=== PATIENT | male | born 1960 | race Two or more races ===

== ENCOUNTER 2016-09-03 22:22 | Inpatient (IN) | payer OTHER, MEDICAID ==
[~2016-09-03] VITALS: Ht 170.2 cm; Wt 96.4 kg
[~2016-09-03 22:22] MED LIST: /ESCI20TA; ABIL2TAB2 PO; ABIL5TAB; AMBI5TAB; BACT2CRE TOP; BENI20TA11; CELE20TA; CELE40TA PO; HYDR-4274 PO; HYDR25T PO; HYDR25TA6; KLON1TAB; METH36TA PO; SERO200T; SEROQUEL; SUBO8MIS SL; TRAZ50TA4 PO
[2016-09-03 23:22] LABS: MEAN CORPUSCULAR HEMOGLOBIN 29.9 pg (27.0-33.0); MEAN CORPUSCULAR HGB CONC 35.4 g/dl (32.0-36.5); MEAN CORPUSCULAR VOLUME 84.4 fl (80.0-96.0); RED CELL DISTRIBUTION WIDTH 13.8 % (11.5-14.5); WHITE BLOOD COUNT 7.5 K/mm3 (4.0-10.0)
[2016-09-03 23:26] LABS: AMPHETAMINES LEVEL URINE NEGATIVE (NEGATIVE); BENZODIAZEPINES URINE NEGATIVE (NEGATIVE); COCAINE METABOLITE URINE NEGATIVE (NEGATIVE); CONTROL LINE INT CTR LINE PRESENT; METHADONE URINE NEGATIVE (NEGATIVE); OPIATES URINE NEGATIVE (NEGATIVE); TRICYCLIC ANTIDEPRESS URINE NEGATIVE (NEGATIVE)
[2016-09-04 00:16] LABS: ALBUMIN 3.9 GM/DL (3.2-5.2); ALBUMIN/GLOBULIN RATIO 1.11 (1.00-1.93); ALKALINE PHOSPHATASE 54 U/L (45-117); ALT/SGPT 173 U/L (12-78); ANION GAP 7 MEQ/L (8-16); AST/SGOT 79 U/L (15-37); BILIRUBIN,DIRECT < 0.1 MG/DL (0.0-0.2); BILIRUBIN,TOTAL 0.3 MG/DL (0.2-1.0); BLOOD UREA NITROGEN 10 MG/DL (7-18); CALCIUM LEVEL 8.5 MG/DL (8.5-10.1); CARBON DIOXIDE LEVEL 29 MEQ/L (21-32); CHLORIDE LEVEL 109 MEQ/L (98-107); CREATININE FOR GFR 0.91 MG/DL (0.70-1.30); GLOMERULAR FILTRATION RATE > 60.0 (>56); GLUCOSE, FASTING 109 MG/DL (70-105); SODIUM LEVEL 145 MEQ/L (136-145); TOTAL PROTEIN 7.4 GM/DL (6.4-8.2)
[2016-09-04] MEDS ORDERED: MOM 30ML SUSPENSION UDC PO PRN (02:00)
[2016-09-04] MEDS ORDERED: ACETAMINOPHEN TAB 650MG DOSE (2X325MG) PO PRN (02:00)
[2016-09-04] MEDS ORDERED: hydrOXYzine 50 MG TAB PO PRN (02:00)
[2016-09-04] MEDS ORDERED: MAALOX 30 ML SUSP *UDC PO PRN (02:00)
--- NOTE | 2016-09-04 02:49 | EDDOCDS ---
Physician Documentation [facility] Name: Luciano Holder Age: 55 yrs Sex: Male : 1960 Arrival Date: 09/03/2016 Time: 22:22 Bed OBSERVATION Private MD: Unknown, Family Dr Disposition: 09/04/16 02:31 Hospitalization ordered by Costa Barrientos for Inpatient Admission. Preliminary diagnosis are Major depressive disorder, recurrent, Alcohol abuse with intoxication. - Bed requested for Admit. - Status is Inpatient Admission. rw1 - Condition is Stable. - Problem is chronic. - Symptoms have improved. Historical: - Home Meds: 1. citalopram 40 mg Oral tab 1 tab once daily 2. Concerta Oral once daily 3. hydroxyzine HCl 25 mg Oral tab 1 tab 3 times per day 4. Suboxone 8-2 mg SL film 1.5 film once daily 1.5 film daily - PMHx: Anxiety; Depression; Hepatitis C; Hypertension; - PSHx: none; - Social history: Smoking status: Patient uses tobacco products, heavy tobacco smoker. No barriers to communication noted, The patient speaks fluent Nigerien, Speaks appropriately for age. - Family history: Not pertinent. - : The pt / caregiver states he / she is not on anticoagulants. Home medication list is obtained from [employer] import data. - Exposure Risk Screening:: None identified. Vital Signs: 09/03 22:23 BP 146 / 86; Pulse 98; Resp 18 S; Temp 97.7(O); Pulse Ox 96% ; Weight 97.52 kg / 214.99 gr2 lbs (R); Height 5 ft. 7 in. (170.18 cm) (R); Pain 2/10; 09/04 02:35 BP 112 / 69; Pulse 71; Resp 18; Temp 97.9(TE); Pulse Ox 95% on R/A; tr 09/03 22:23 Body Mass Index 33.67 (97.52 kg, 170.18 cm) gr2 MDM: 09/03 22:41 Consult PFS/PSA/Family Medicine Physician Assistant ordered. cs11 22:41 Consult PFS/PSA/Family Medicine Physician Assistant: Patient's case requires discussion with on-call cs11 Psychiatrist ordered. 22:41 PSA/PFS to call Nursing Salesperson [employer], to enter patient data on [place] Safe Act if patient cs11 involuntarily admitted or transferred for SI or HI ordered. 22:41 Confirm accurate psychiatric medication list and times of last dosage ordered. cs11 22:41 Detain Pt Until Medically/PFS Cleared ordered. cs11 22:42 Acetaminophen Level Ordered. EDMS 22:42 Basic Metabolic Profile Ordered. EDMS 22:42 Complete Blood Count Ordered. EDMS 22:42 Drug Eval Toxicology ED Only Ordered. EDMS 22:42 Ethyl Alcohol (ethanol) Ordered. EDMS 22:42 Liver Profile Ordered. EDMS 22:42 Salicylate Level Ordered. EDMS 22:42 Thyroid Stimulating Hormone Ordered. EDMS 09/04 00:06 Financial registration complete. [facility] 00:17 [facility] Payment Agreement was scanned into [employer] and attached to record. [facility] 01:49 Consult PFS/PSA/Family Medicine Physician Assistant complete. [facility] 01:49 Consult PFS/PSA/Family Medicine Physician Assistant: Patient's case requires discussion with on-call b Psychiatrist complete. 01:49 PSA/PFS to call Nursing Salesperson [employer], to enter patient data on [facility] Safe Act if patient jfb involuntarily admitted or transferred for SI or HI complete. 02:02 Admit to [facility]: ordered. EDMS 02:03 REGULAR DIET ordered. EDMS 02:29 [facility] Legal paperwork was scanned into [employer] and attached to record. jfb 02:30 Acetaminophen Level Reviewed. cs11 02:30 Basic Metabolic Profile Reviewed. cs11 02:30 Ethyl Alcohol (ethanol) Reviewed. cs11 02:30 Liver Profile Reviewed. cs11 02:30 Salicylate Level Reviewed. cs11 02:30 Complete Blood Count Reviewed. cs11 02:30 Drug Eval Toxicology ED Only Reviewed. cs11 02:30 Thyroid Stimulating Hormone Reviewed. cs11 02:33 BED REQUEST+ADM ordered. EDMS Signatures: Dispatcher [employer] EDMS Musa Matias, RN RN cz Shahram Silvestre LPN NETWORKING ENGINEER rw1 Iesha Ford PSA PSA David Baca, DO cs11 Tiffanie Hathaway [facility] The chart was reviewed and I authenticate all verbal orders and agree with the evaluation and treatment provided.Attachments: 00:17 [facility] Payment Agreement [facility] MTDD
--- NOTE | 2016-09-04 02:50 | EDDOCDS ---
Nurse's Notes [facility] Name: Luciano Holder Age: 55 yrs Sex: Male : 1960 Arrival Date: 09/03/2016 Time: 22:22 Bed OBSERVATION Private MD: Unknown, Family Dr Diagnosis: Major depressive disorder, recurrent;Alcohol abuse with intoxication Presentation: 09/03 22:30 Presenting complaint: Patient states: pt states he has been depressed since the cz holidays,pt has history of depression takes medications for same.pt denies SI/HI. Mental Health Triage Level: Level 1- Pt displays no suicidal or homicidal ideations and does not appear to be a danger to self or others. Adult Sepsis Screening: The patient does not have new or worsening altered mentation. Patient's respiratory rate is less than 22. Systolic blood pressure is greater than 100. Patient has a qSOFA score of 0- Negative Sepsis Screen. Mental Health Triage Level: Level 1- Pt displays no suicidal or homicidal ideations and does not appear to be a danger to self or others. Suicide/Homicide risk assessment- the patient denies having any suicidal and/or homicidal ideations and does not present with any other emotional, behavioral or mental health complaints. Status: Patient is not a service clerk or dependent. Transition of care: patient was not received from another setting of care. 22:30 Acuity: TONJA Level 3 22:30 Method Of Arrival: Walkin/Carried/Asstd Triage Assessment: 22:33 General: Appears distressed, Behavior is cooperative, restless. Pain: Denies pain. HIV cz screening NA for this visit Offered previously. Historical: - Home Meds: 1. citalopram 40 mg Oral tab 1 tab once daily 2. Concerta Oral once daily 3. hydroxyzine HCl 25 mg Oral tab 1 tab 3 times per day 4. Suboxone 8-2 mg SL film 1.5 film once daily 1.5 film daily - PMHx: Anxiety; Depression; Hepatitis C; Hypertension; - PSHx: none; - Social history: Smoking status: Patient uses tobacco products, heavy tobacco smoker. No barriers to communication noted, The patient speaks fluent Lao, Speaks appropriately for age. - Family history: Not pertinent. - : The pt / caregiver states he / she is not on anticoagulants. Home medication list is obtained from [employer] import data. - Exposure Risk Screening:: None identified. Screenin/22 02:46 Screening information is obtained from the patient. Fall risk: No risks identified. rw1 Assistance ADL's: requires no assistance with activities of daily living. Abuse/DV Screen: The patient / caregiver reports he/she is: not in a situation that causes fear, pain or injury. Nutritional screening: No deficits noted. Advance Directives: Currently, there is no health care proxy. home support is adequate. Assessment: 09/03 22:33 General: see triage assessment. rw1 23:30 General: Appears in no apparent distress, comfortable, Behavior is appropriate for age, rw1 cooperative, quiet. Pain: Denies pain. Neurological: Level of Consciousness is awake, alert, obeys commands, Oriented to person, place, time. Respiratory: Airway is patent Respiratory effort is even, unlabored. Derm: Skin is normal. 09/04 00:30 Reassessment: Patient appears in no apparent distress at this time. resting quietly on rw1 stretcher, safety maintained will monitor.. 02:30 Reassessment: Patient appears in no apparent distress at this time. resting quietly on rw1 stretcher, safety maintained will monitor.. Mental Health Eval: 00:56 Status: The patient is a dependent. 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 [facility] Behavioral Health: The patient is not an established patient of [facility]. Referral Information: Evaluation referral is generated by the patient himself / herself. The patient was referred for evaluation because PT requesting admission for depression. Subjective: The patients chief complaint is Per PT's step daughter Desi Reeves [phone] PT called her to bring him to ED for admission. PT has adult children and none of them contacted him on any of the holidays. Today he called his daughter to confront her and she "said the most awful things to him". PT called Desi stating he had begun cutting his left wrist with a razor but then decided to come to hospital before he did anything further. PT had been drinking and states he has not drank since last year. PT states his children are his main stressors but he has been wondering if his medications are still affective. PT currently seen at the [facility] for mental health but he also is prescribed Suboxin for opiate addiction. PT states his last use of heroin was a few years ago before he started the Suboxin treatment. PT cannot CFS and states he is afraid of what will happen if he doesn't get help. . Delusions are denied. Patient's mood is depressed, Hallucinations are denied. Mental Health history: Mental Health Admissions: PT has been seen in ER 10 times since 2007 with 5 admissions to [facility] and 1 admission to [facility]. Last admission was 10/2015 Current living environment is The patient currently lives with his / her significant other, . 01:29 Mental Health history: anxiety, depression, abusing heroin. self -mutilation, sleep jfb disturbance, suicide attempt by 2016 cut wrists Current Outpatient Mental Health Services: Psychiatrist / Agency: [facility]. Therapist / Agency: [facility]. [facility] for Suboxin. Current living environment is. Patient presents to Emergency Department with the following symptoms within the past 2 weeks: alcohol abuse, depressed mood, feelings of helplessness/hopelessness, relational problem, Patient has mutilated themselves by cutting their left wrist sleep disturbance - erratic suicidal ideation with no plan. Substance abuse: Patient uses tobacco Frequency daily. Mental status exam: Patients appearance is appropriate, Patient's behavior is cooperative, Speech is normal. Affect is flat. Mood is depressed. Hallucinations are denied. Appetite is normal. Memory is good. Energy level is normal. Content of thought is depressive. cannot CFS Thought process is intact. Cognitive level is oriented to person, place, time and situation Patient's insight is fair. Judgement is fair. Rapport with interviewer is good. Suicidal Ideation is present with no specific plan. Homicidal ideation is denied. Disposition: Medically cleared for disposition by David Aranda DO Psychiatric Consult is performed by phone with Dr Costa Barrientos MD. [facility] Admission Criteria: The patient is experiencing suicidal ideation. The patient requires continuous observation and/or control to protect self, others or property. The patient's care requires a multi-modal treatment plan under close supervision and coordination due to the complexity and severity of the patient's symptoms. The patient requires administration and monitoring of psychoactive medications by skilled medical providers due to the side effects of the psychoactive medications or significant dosage adjustments. Legal Status: Patient's legal status will be Emergency admission: [place] Safe Act: [place] Safe Act is applicable to this patient. The patient poses a risk to self or other and the Nursing Cancer Program Director has been notified. He/She will enter the patient's data. DSM-V Differential Diagnosis: Unspecified Depressive Disorder (F32.9). Insurance Pre-Certification: Not Required, and Medicaid . 02:25 Awaiting: transfer to [facility]. [facility] Vital Signs: 09/03 22:23 BP 146 / 86; Pulse 98; Resp 18 S; Temp 97.7(O); Pulse Ox 96% ; Weight 97.52 kg (R); gr2 Height 5 ft. 7 in. (170.18 cm) (R); Pain 09/23; 09/04 02:35 BP 112 / 69; Pulse 71; Resp 18; Temp 97.9(TE); Pulse Ox 95% on R/A; tr 09/03 22:23 Body Mass Index 33.67 (97.52 kg, 170.18 cm) gr2 Vitals: 09/03 22:23 Log In Time: September 03, 2016 at 22:23. RN notified that patient meets Red Flag gr2 criteria. ED Course: 22:23 Patient visited by Viola Painter. gr2 22:23 Unknown, Family Dr is Private Physician. gr2 22:23 Patient moved to Waiting gr2 22:25 Patient visited by Viola Painter. gr2 22:25 Patient moved to Pre RCE gr2 22:26 Patient moved to [facility] cz 22:32 Triage Initiated cz 22:41 David Aranda DO is Attending Physician. cs11 22:41 Patient visited by David Aranda DO. cs11 22:42 Patient visited by Qasim Doss. tr 22:58 Patient visited by Qasim Doss. tr 23:10 Acetaminophen Level Sent. rw1 23:10 Basic Metabolic Profile Sent. rw1 23:10 Complete Blood Count Sent. rw1 23:10 Drug Eval Toxicology ED Only Sent. rw1 23:10 Ethyl Alcohol (ethanol) Sent. rw1 23:10 Liver Profile Sent. rw1 23:10 Salicylate Level Sent. rw1 23:10 Thyroid Stimulating Hormone Sent. rw1 23:19 Patient visited by Qasim Doss. tr 23:23 Patient moved to OBSERVATION cs11 23:37 Patient visited by Qasim Doss. tr 23:57 Patient visited by Tim. Selam tr 09/04 00:17 [facility] Payment Agreement was scanned into [employer] and attached to record. slh 00:19 Patient visited by Qasim Doss. tr 00:30 Patient visited by Qasim Doss. tr 00:47 Patient visited by Qasim Doss. tr 01:00 Patient visited by Qasim Doss. tr 01:15 Patient visited by Qasim Doss. tr 01:30 Patient visited by Qasim Doss. tr 01:48 Patient visited by Qasim Doss. tr 01:59 Patient visited by Qasim Doss. tr 02:15 Patient visited by Qasim Doss. tr 02:29 [facility] Legal paperwork was scanned into [employer] and attached to record. jfb 02:31 Costa Barrientos MD is Hospitalizing Provider. cs11 02:46 Patient visited by Qasim Doss. tr 02:46 The patient / caregiver is instructed regarding the plan of care and ED course. rw1 02:46 No IV's were initiated during this patient's visit. No procedures done that require rw1 assistance. Attachments: 02:29 E Legal paperwork jfb Order Results: Lab Order: Acetaminophen Level; SPEC'M 09/03/16 23:07 Test: ACETAMINOPHEN LEVEL; Value: < 2.0; Range: 10.0-30.0; Abnormal: Below low normal; Units: UG/ML; Status: F Lab Order: Basic Metabolic Profile; SPEC'M 09/03/16 23:07 Test: GLUCOSE, FASTING; Value: 109; Range: 70-105; Abnormal: Above high normal; Units: MG/DL; Status: F Test: BLOOD UREA NITROGEN; Value: 10; Range: 7-18; Units: MG/DL; Status: F Test: CREATININE FOR GFR; Value: 0.91; Range: 0.70-1.30; Units: MG/DL; Status: F Test: GLOMERULAR FILTRATION RATE; Value: > 60.0; Range: >56; Status: F Test: SODIUM LEVEL; Value: 145; Range: 136-145; Units: MEQ/L; Status: F Test: POTASSIUM SERUM; Value: 4.0; Range: 3.5-5.1; Units: MEQ/L; Status: F Test: CHLORIDE LEVEL; Value: 109; Range: 98-107; Abnormal: Above high normal; Units: MEQ/L; Status: F Test: CARBON DIOXIDE LEVEL; Value: 29; Range: 21-32; Units: MEQ/L; Status: F Test: ANION GAP; Value: 7; Range: 8-16; Abnormal: Below low normal; Units: MEQ/L; Status: F Test: CALCIUM LEVEL; Value: 8.5; Range: 8.5-10.1; Units: MG/DL; Status: F Test Note: ; Units are mL/min/1.73 m2 Chronic Kidney Disease Staging per NKF: Stage I & II GFR >=60 Normal to Mildly Decreased Stage III GFR 30-59 Moderately Decreased Stage IV GFR 15-29 Severely Decreased Stage V GFR <15 Very Little GFR Left ESRD GFR <15 on READING ASSISTANT Lab Order: Complete Blood Count; SPEC'M 09/03/16 23:07 Test: WHITE BLOOD COUNT; Value: 7.5; Range: 4.0-10.0; Units: K/mm3; Status: F Test: RED BLOOD COUNT; Value: 5.15; Range: 4.30-6.10; Units: M/mm3; Status: F Test: HEMOGLOBIN; Value: 15.4; Range: 14.0-18.0; Units: g/dl; Status: F Test: HEMATOCRIT; Value: 43.5; Range: 42.0-52.0; Units: %; Status: F Test: MEAN CORPUSCULAR VOLUME; Value: 84.4; Range: 80.0-96.0; Units: fl; Status: F Test: MEAN CORPUSCULAR HEMOGLOBIN; Value: 29.9; Range: 27.0-33.0; Units: pg; Status: F Test: MEAN CORPUSCULAR HGB CONC; Value: 35.4; Range: 32.0-36.5; Units: g/dl; Status: F Test: RED CELL DISTRIBUTION WIDTH; Value: 13.8; Range: 11.5-14.5; Units: %; Status: F Test: PLATELET COUNT, AUTOMATED; Value: 212; Range: 150-450; Units: k/mm3; Status: F Lab Order: Drug Eval Toxicology ED Only; SPEC'M 09/03/16 23:07 Test: AMPHETAMINES LEVEL URINE; Value: NEGATIVE; Range: NEGATIVE; Status: F Test: BARBITURATES URINE; Value: NEGATIVE; Range: NEGATIVE; Status: F Test: BENZODIAZEPINES URINE; Value: NEGATIVE; Range: NEGATIVE; Status: F Test: CANNABINOIDS URINE; Value: NEGATIVE; Range: NEGATIVE; Status: F Test: COCAINE METABOLITE URINE; Value: NEGATIVE; Range: NEGATIVE; Status: F Test: METHADONE URINE; Value: NEGATIVE; Range: NEGATIVE; Status: F Test: OPIATES URINE; Value: NEGATIVE; Range: NEGATIVE; Status: F Test: TRICYCLIC ANTIDEPRESS URINE; Value: NEGATIVE; Range: NEGATIVE; Status: F Test Note: ; ALL PRESUMPTIVE POSITIVE FINDINGS ARE UNCONFIRMED NORMAL VALUES THRESHOLD IN NG/ML AMPHETAMINES 1000 METHAMPHETAMINES 1000 BARBITURATES 300 BENZODIAZEPINES 300 CANNABINOIDS (THC) 50 COCAINE METABOLITE 300 METHADONE 300 OPIATES 300 PHENCYCLIDINE 25 TRICYCLIC ANTIDEPRESSANTS 1000 RESULTS ARE FOR MEDICAL PURPOSES ONLY. ALL URINE SPECIMENS WILL BE SAVED FOR 3 DAYS. IF CONFIRMATION OF A PRESUMPTIVE POSTIVE SCREEN RESULT IS DESIRED, CALL CHEMISTRY ([phone]) AND REQUEST URINE TO BE SENT TO REFERENCE LAB. FOR A LIST OF CLOSELY RELATED COMPOUNDS PLEASE CALL THE LAB. Lab Order: Ethyl Alcohol (ethanol); SPEC'M 09/03/16 23:07 Test: ETHYL ALCOHOL (ETHANOL); Value: 0.118; Range: 0.000-0.010; Abnormal: Above high normal; Units: %; Status: F Lab Order: Liver Profile; SPEC'M 09/03/16 23:07 Test: AST/SGOT; Value: 79; Range: 15-37; Abnormal: Above high normal; Units: U/L; Status: F Test: ALT/SGPT; Value: 173; Range: 12-78; Abnormal: Above high normal; Units: U/L; Status: F Test: ALKALINE PHOSPHATASE; Value: 54; Range: 45-117; Units: U/L; Status: F Test: BILIRUBIN,TOTAL; Value: 0.3; Range: 0.2-1.0; Units: MG/DL; Status: F Test: BILIRUBIN,DIRECT; Value: < 0.1; Range: 0.0-0.2; Units: MG/DL; Status: F Test: TOTAL PROTEIN; Value: 7.4; Range: 6.4-8.2; Units: GM/DL; Status: F Test: ALBUMIN; Value: 3.9; Range: 3.2-5.2; Units: GM/DL; Status: F Test: ALBUMIN/GLOBULIN RATIO; Value: 1.11; Range: 1.00-1.93; Status: F Lab Order: Salicylate Level; SPEC'M 09/03/16 23:07 Test: SALICYLATE LEVEL; Value: 1.9; Range: 5.0-30.0; Abnormal: Below low normal; Units: MG/DL; Status: F Lab Order: Thyroid Stimulating Hormone; SPEC'M 09/03/16 23:07 Test: THYROID STIMULATING HORMONE; Value: 0.963; Range: 0.358-3.740; Units: uIU/ML; Status: F Outcome: 02:31 Decision to Hospitalize by Provider. cs11 02:46 Discharge Assessment: Patient awake, alert and oriented x 3. No cognitive and/or rw1 functional deficits noted. Patient verbalized understanding of disposition instructions. patient administered narcotics - no. The following High Risk Discharge criteria are identified: Admitted to Psych accompanied by tech, via wheelchair, with chart. Condition: stable. No special radiology studies were completed. Property removed, inventory done, secured in belongings bag- given to [facility] staff. 02:48 Patient left the ED. rw1 Signatures: Musa Matias RN RN cz Rasmussen, Tim tr Workman, Robert, LPN LPN rw1 Iesha Ford PSA PSA jfb David Aranda, DO cs11 Viola Painter gr2 Tiffanie Hathaway shannan Corrections: (The following items were deleted from the chart) 01:48 00:56 Status: The patient is not a service clerk or dependent. ken rogers 01:48 00:56 Subjective: The patients chief complaint is Per PT's step daughter Desi Reeves [facility] [phone] PT called her to bring him to ED for admission. PT has adult children and none of them contacted him on any of the holidays. Today he called his daughter to confront her and she "said the most awful things to him". PT called Desi stating he had begun scratching his left wrist but then decided to come to hospital before he did anything further. . ken MTDD
[2016-09-04 02:57] VITALS: BP 108/63
[2016-09-04] MEDS ORDERED: CONC36TA4 PO (02:58)
[2016-09-04] MEDS ORDERED: HYDR-4274 PO (02:58)
[2016-09-04] MEDS: METHYLPHENIDATE ER 18 MG TABLET (CONCERTA) PO SCH (08:24)
[2016-09-04] MEDS: BUPRENORPHINE/NALOXONE 8-2MG SUBLINGUAL TABLET(SUBOXONE) SL SCH (08:24)
[2016-09-04] MEDS: CitaloPRAM (CeleXA) 20 MG TAB PO SCH (08:24)
[2016-09-04] MEDS: NICOTINE 21MG/24HR 1 EA TRANSDERMAL TD SCH (11:26)
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
[2016-09-04 18:00] VITALS: BP 121/78
[2016-09-04] MEDS: traZODone 50 MG TAB PO PRN (21:15)
[2016-09-05 06:39] VITALS: BP 122/72
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
--- NOTE | 2016-09-05 08:31 | HPE ---
DATE OF ADMISSION: 09/04/2016 HISTORY OF PRESENT ILLNESS: Please refer to psychiatric history and evaluation for further details on this admission. This examination and history is intended for medical issues, which may need treatment, followup or consultation on this 55-year-old male. SOCIAL HISTORY: He lives with is girlfriend. He is disabled. He smokes one pack of cigarettes per day. He has a history of heavy alcohol use, he used to drink two pints of vodka per day. He has had none for one year. He quit heroin over one year ago. He attends the Suboxone clinic. FAMILY HISTORY: Mother is 79, alive with hypertension. Father unknown. Four siblings alive and well. PAST MEDICAL HISTORY: Anxiety, depression, history of substance abuse, on Suboxone, hepatitis C and sees Dr. Velasquez, next appointment in three months, hypertension, tobacco use. The patient is edentulous. PAST SURGICAL HISTORY: Negative. ALLERGIES: No known drug allergies. HOME MEDICATIONS: - Suboxone 8/2 1.5 mg daily - Celexa 40 mg by mouth daily - hydroxyzine 50 mg by mouth three times a day - Concerta daily LABORATORY STUDIES: CBC is normal. Sodium 145, potassium 4.0, chloride 109, CO2 is 70, BUN and creatinine 10 and 0.91, AST 79, ALT is 173, ETOH is 0.118, which was the first time, he states, that he has drank for a year. REVIEW OF SYSTEMS: Ten systems review was done. The patient had no specific complaints. Had some superficial lacerations on his left wrist. PHYSICAL EXAMINATION: GENERAL: [id number] obese, cooperative male in no acute distress. Height 67 inches, weight 97.52 kg, Body Mass Index (BMI) 33.1. VITAL SIGNS: Blood pressure was 120/78, pulse 81, respirations 16, temperature 99.5. The patient is alert and oriented times three. HEENT: Pupils are equal and reactive to light. Extraocular muscles intact. Sclerae clear. Conjunctivae normal. No facial asymmetry. Pharynx, gums and tongue pink and moist. Tongue is midline. NECK: Supple without lymphadenopathy. No thyromegaly. No goiter. Carotids 2+ without bruits. CHEST: Clear to auscultation without wheeze or retraction. HEART: Regular. ABDOMEN: Benign. Bowel sounds positive. GENITOURINARY/RECTAL: Not done. EXTREMITIES: Show no clubbing, cyanosis, and edema. Multiple superficial lacerations to the left forearm. No redness or drainage. Peripheral pulses equal and palpable bilaterally. Gait is steady. SKIN: Warm and dry. IMPRESSION/PLAN: 1. Psychiatric plan per psychiatry. 2. History of hepatitis C. Continue to followup with Dr. Velasquez. 3. History of Suboxone use. Continue to followup at Suboxone clinic. 4. Hypertension, stable. 5. Tobacco use. Patch offered and available.
[2016-09-05] MEDS: NICOTINE 21MG/24HR 1 EA TRANSDERMAL TD SCH (08:36)
[2016-09-05] MEDS: METHYLPHENIDATE ER 18 MG TABLET (CONCERTA) PO SCH (08:36)
[2016-09-05] MEDS: BUPRENORPHINE/NALOXONE 8-2MG SUBLINGUAL TABLET(SUBOXONE) SL SCH (08:37)
[2016-09-05] MEDS: CitaloPRAM (CeleXA) 20 MG TAB PO SCH (08:37)
--- NOTE | 2016-09-05 11:52 | IPNPDOC ---
Assessment/Plan Date Seen The patient was seen on 09/05/16. Problems Problems: (1) Right upper quadrant abdominal pain Status: Acute Problem Text: * CBC/CMP * Upper quadrant ultrasound * Encourage by mouth fluids * Tylenol as needed (2) Chronic hepatitis C Status: Chronic Problem Text: * Arrange follow-up with Dr. Velasquez at discharge (3) Hypertension Status: Chronic Problem Text: * Patient does not take any antihypertensives * BP remains controlled (4) Tobacco use Status: Chronic Problem Text: * Continue NicoDerm (5) Substance use disorder Status: Chronic Problem Text: * Management as per psychiatry * Remains on Suboxone Plan / VTE VTE Prophylaxis Ordered?: No (ambulatory) Subjective Review of Systems CC/HPI The patient is a 55-year-old male admitted with a reason for visit of Unspecified Depressive Do. Events since last encounter Patient states he has right upper quadrant abdominal discomfort. States this happens to him on and off. No nausea or vomiting. Denies diarrhea or constipation. Patient states he is eating and drinking. Denies urinary complaints. Denies fevers or chills. Pulmonary: Denies: Cough, Dyspnea Cardiovascular: Denies: Chest Pain, Lt Headedness, Orthopnea, Palpitations, Paroxysmal Noc. Dyspnea Genitourinary: Denies: Dysuria, Frequency, Incontinence, Retention Objective Physical Examination General Exam: Positive: Alert Eye Exam: Positive: PERRLA Neck Exam: Positive: Supple, Negative: JVD, thyromegaly Chest Exam: Positive: Clear to auscultation, Normal air movement Heart Exam: Positive: Normal S1, Normal S2, Rate Normal, Regular Rhythm, Negative: Murmurs, Rubs Abdomen Exam: Positive: Normal bowel sounds, Other (no guarding. No rebound tenderness.), Tenderness (mild tenderness with palpation in the right upper quadrant.) Skin Exam: Positive: Nl turgor and temperature Neuro Exam: Positive: Normal Gait Vital Signs/I&O Vital Signs Date Time Temp Pulse Resp B/P Pulse Ox O2 Delivery O2 Flow Rate FiO2 09/05/16 06:39 96.3 67 18 122/72 Celine Maldonado Sep 05, 2016 11:51
[2016-09-05 12:36] LABS: BASO % 0.7 % (0.0-1.0); EOS # 0.2 K/mm3 (0.0-0.50); EOS % 3.3 % (0.0-3.0); LARGE UNSTAINED CELL # 0.2 K/mm3 (0.0-0.4); LARGE UNSTAINED CELL % 2.6 % (0.0-4.0); LYMPH # 2.4 K/mm3 (1.5-4.5); LYMPH % 38.8 % (24.0-44.0); MEAN CORPUSCULAR HEMOGLOBIN 28.7 pg (27.0-33.0); MEAN CORPUSCULAR HGB CONC 33.9 g/dl (32.0-36.5); MEAN CORPUSCULAR VOLUME 84.6 fl (80.0-96.0); MONO # 0.5 K/mm3 (0.0-0.8); MONO % 8.7 % (0.0-5.0); NEUTROPHILS # 2.8 K/mm3 (1.8-7.7); PLATELET COUNT, AUTOMATED 181 k/mm3 (150-450); RED CELL DISTRIBUTION WIDTH 13.8 % (11.5-14.5); WHITE BLOOD COUNT 6.2 K/mm3 (4.0-10.0)
[2016-09-05 13:56] LABS: ALBUMIN 3.7 GM/DL (3.2-5.2); ALBUMIN/GLOBULIN RATIO 1.16 (1.00-1.93); ALKALINE PHOSPHATASE 53 U/L (45-117); ALT/SGPT 148 U/L (12-78); ANION GAP 7 MEQ/L (8-16); AST/SGOT 59 U/L (15-37); BILIRUBIN,TOTAL 0.3 MG/DL (0.2-1.0); BLOOD UREA NITROGEN 13 MG/DL (7-18); CALCIUM LEVEL 8.7 MG/DL (8.5-10.1); CARBON DIOXIDE LEVEL 29 MEQ/L (21-32); CHLORIDE LEVEL 107 MEQ/L (98-107); CREATININE FOR GFR 0.76 MG/DL (0.70-1.30); GLOMERULAR FILTRATION RATE > 60.0 (>56); GLUCOSE, FASTING 104 MG/DL (70-105); POTASSIUM SERUM 4.4 MEQ/L (3.5-5.1); SODIUM LEVEL 143 MEQ/L (136-145); TOTAL PROTEIN 6.9 GM/DL (6.4-8.2)
[2016-09-05 18:00] VITALS: BP 134/92
[2016-09-05] MEDS: traZODone 50 MG TAB PO PRN (21:29)
--- NOTE | 2016-09-06 03:50 | EDDOCDS ---
Nurse's Notes [facility] Name: Luciano Holder Age: 55 yrs Sex: Male : 1960 Arrival Date: 09/03/2016 Time: 22:22 Bed OBSERVATION Private MD: Unknown, Family Dr Diagnosis: Major depressive disorder, recurrent;Alcohol abuse with intoxication Presentation: 09/03 22:30 Presenting complaint: Patient states: pt states he has been depressed since the cz holidays,pt has history of depression takes medications for same.pt denies SI/HI. Mental Health Triage Level: Level 1- Pt displays no suicidal or homicidal ideations and does not appear to be a danger to self or others. Adult Sepsis Screening: The patient does not have new or worsening altered mentation. Patient's respiratory rate is less than 22. Systolic blood pressure is greater than 100. Patient has a qSOFA score of 0- Negative Sepsis Screen. Mental Health Triage Level: Level 1- Pt displays no suicidal or homicidal ideations and does not appear to be a danger to self or others. Suicide/Homicide risk assessment- the patient denies having any suicidal and/or homicidal ideations and does not present with any other emotional, behavioral or mental health complaints. Status: Patient is not a guest service manager or dependent. Transition of care: patient was not received from another setting of care. 22:30 Acuity: TONJA Level 3 22:30 Method Of Arrival: Walkin/Carried/Asstd Triage Assessment: 22:33 General: Appears distressed, Behavior is cooperative, restless. Pain: Denies pain. HIV cz screening NA for this visit Offered previously. Historical: - Home Meds: 1. citalopram 40 mg Oral tab 1 tab once daily 2. Concerta Oral once daily 3. hydroxyzine HCl 25 mg Oral tab 1 tab 3 times per day 4. Suboxone 8-2 mg SL film 1.5 film once daily 1.5 film daily - PMHx: Anxiety; Depression; Hepatitis C; Hypertension; - PSHx: none; - Social history: Smoking status: Patient uses tobacco products, heavy tobacco smoker. No barriers to communication noted, The patient speaks fluent Slovak, Speaks appropriately for age. - Family history: Not pertinent. - : The pt / caregiver states he / she is not on anticoagulants. Home medication list is obtained from [employer] import data. - Exposure Risk Screening:: None identified. Screenin/22 02:46 Screening information is obtained from the patient. Fall risk: No risks identified. rw1 Assistance ADL's: requires no assistance with activities of daily living. Abuse/DV Screen: The patient / caregiver reports he/she is: not in a situation that causes fear, pain or injury. Nutritional screening: No deficits noted. Advance Directives: Currently, there is no health care proxy. home support is adequate. Assessment: 09/03 22:33 General: see triage assessment. rw1 23:30 General: Appears in no apparent distress, comfortable, Behavior is appropriate for age, rw1 cooperative, quiet. Pain: Denies pain. Neurological: Level of Consciousness is awake, alert, obeys commands, Oriented to person, place, time. Respiratory: Airway is patent Respiratory effort is even, unlabored. Derm: Skin is normal. 09/04 00:30 Reassessment: Patient appears in no apparent distress at this time. resting quietly on rw1 stretcher, safety maintained will monitor.. 02:30 Reassessment: Patient appears in no apparent distress at this time. resting quietly on rw1 stretcher, safety maintained will monitor.. Mental Health Eval: 00:56 Status: The patient is a dependent. 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 [facility] Behavioral Health: The patient is not an established patient of [facility] Behavioral Health. Referral Information: Evaluation referral is generated by the patient himself / herself. The patient was referred for evaluation because PT requesting admission for depression. Subjective: The patients chief complaint is Per PT's step daughter Desi Reeves [phone] PT called her to bring him to ED for admission. PT has adult children and none of them contacted him on any of the holidays. Today he called his daughter to confront her and she "said the most awful things to him". PT called Desi stating he had begun cutting his left wrist with a razor but then decided to come to hospital before he did anything further. PT had been drinking and states he has not drank since last year. PT states his children are his main stressors but he has been wondering if his medications are still affective. PT currently seen at the [facility] for mental health but he also is prescribed Suboxin for opiate addiction. PT states his last use of heroin was a few years ago before he started the Suboxin treatment. PT cannot CFS and states he is afraid of what will happen if he doesn't get help. . Delusions are denied. Patient's mood is depressed, Hallucinations are denied. Mental Health history: Mental Health Admissions: PT has been seen in ER 10 times since 2007 with 5 admissions to [facility] and 1 admission to [facility]. Last admission was 10/2015 Current living environment is The patient currently lives with his / her significant other, . 01:29 Mental Health history: anxiety, depression, abusing heroin. self -mutilation, sleep jfb disturbance, suicide attempt by 2016 cut wrists Current Outpatient Mental Health Services: Psychiatrist / Agency: [facility]. Therapist / Agency: [facility]. [facility] for Suboxin. Current living environment is. Patient presents to Emergency Department with the following symptoms within the past 2 weeks: alcohol abuse, depressed mood, feelings of helplessness/hopelessness, relational problem, Patient has mutilated themselves by cutting their left wrist sleep disturbance - erratic suicidal ideation with no plan. Substance abuse: Patient uses tobacco Frequency daily. Mental status exam: Patients appearance is appropriate, Patient's behavior is cooperative, Speech is normal. Affect is flat. Mood is depressed. Hallucinations are denied. Appetite is normal. Memory is good. Energy level is normal. Content of thought is depressive. cannot CFS Thought process is intact. Cognitive level is oriented to person, place, time and situation Patient's insight is fair. Judgement is fair. Rapport with interviewer is good. Suicidal Ideation is present with no specific plan. Homicidal ideation is denied. Disposition: Medically cleared for disposition by David Aranda DO Psychiatric Consult is performed by phone with Dr Costa Barrientos MD. [facility] Admission Criteria: The patient is experiencing suicidal ideation. The patient requires continuous observation and/or control to protect self, others or property. The patient's care requires a multi-modal treatment plan under close supervision and coordination due to the complexity and severity of the patient's symptoms. The patient requires administration and monitoring of psychoactive medications by skilled medical providers due to the side effects of the psychoactive medications or significant dosage adjustments. Legal Status: Patient's legal status will be Emergency admission: [place] Safe Act: [place] Safe Act is applicable to this patient. The patient poses a risk to self or other and the Nursing High School Business Teacher has been notified. He/She will enter the patient's data. DSM-V Differential Diagnosis: Unspecified Depressive Disorder (F32.9). Insurance Pre-Certification: Not Required, and Medicaid . 02:25 Awaiting: transfer to [facility]. [facility] Vital Signs: 09/03 22:23 BP 146 / 86; Pulse 98; Resp 18 S; Temp 97.7(O); Pulse Ox 96% ; Weight 97.52 kg (R); gr2 Height 5 ft. 7 in. (170.18 cm) (R); Pain 09/23; 09/04 02:35 BP 112 / 69; Pulse 71; Resp 18; Temp 97.9(TE); Pulse Ox 95% on R/A; tr 09/03 22:23 Body Mass Index 33.67 (97.52 kg, 170.18 cm) gr2 Vitals: 09/03 22:23 Log In Time: September 03, 2016 at 22:23. RN notified that patient meets Red Flag gr2 criteria. ED Course: 22:23 Patient visited by Viola Painter. gr2 22:23 Unknown, Family Dr is Private Physician. gr2 22:23 Patient moved to Waiting gr2 22:25 Patient visited by Viola Painter. gr2 22:25 Patient moved to Pre RCE gr2 22:26 Patient moved [address] [facility] cz 22:32 Triage Initiated cz 22:41 David Aranda DO is Attending Physician. cs11 22:41 Patient visited by David Aranda DO. cs11 22:42 Patient visited by Qasim Doss. tr 22:58 Patient visited by Qasim Doss. tr 23:10 Acetaminophen Level Sent. rw1 23:10 Basic Metabolic Profile Sent. rw1 23:10 Complete Blood Count Sent. rw1 23:10 Drug Eval Toxicology ED Only Sent. rw1 23:10 Ethyl Alcohol (ethanol) Sent. rw1 23:10 Liver Profile Sent. rw1 23:10 Salicylate Level Sent. rw1 23:10 Thyroid Stimulating Hormone Sent. rw1 23:19 Patient visited by Qasim Doss. tr 23:23 Patient moved to OBSERVATION cs11 23:37 Patient visited by Qasim Doss. tr 23:57 Patient visited by Tim. Selam tr 09/04 00:17 [facility] Payment Agreement was scanned into [employer] and attached to record. slh 00:19 Patient visited by Qasim Doss. tr 00:30 Patient visited by Qasim Doss. tr 00:47 Patient visited by Qasim Doss. tr 01:00 Patient visited by Qasim Doss. tr 01:15 Patient visited by Qasim Doss. tr 01:30 Patient visited by Qasim Doss. tr 01:48 Patient visited by Qasim Doss. tr 01:59 Patient visited by Qasim Doss. tr 02:15 Patient visited by Qasim Doss. tr 02:29 [facility] Legal paperwork was scanned into [employer] and attached to record. jfb 02:31 Costa Barrientos MD is Hospitalizing Provider. cs11 02:46 Patient visited by Qasim Doss. tr 02:46 The patient / caregiver is instructed regarding the plan of care and ED course. rw1 02:46 No IV's were initiated during this patient's visit. No procedures done that require rw1 assistance. 17:48 T-Sheet-- Draft Copy was scanned into [employer] and attached to record. klr Attachments: 02:29 [facility] Legal paperwork jfb Order Results: Lab Order: Acetaminophen Level; SPEC'M 09/03/16 23:07 Test: ACETAMINOPHEN LEVEL; Value: < 2.0; Range: 10.0-30.0; Abnormal: Below low normal; Units: UG/ML; Status: F Lab Order: Basic Metabolic Profile; SPEC'M 09/03/16 23:07 Test: GLUCOSE, FASTING; Value: 109; Range: 70-105; Abnormal: Above high normal; Units: MG/DL; Status: F Test: BLOOD UREA NITROGEN; Value: 10; Range: 7-18; Units: MG/DL; Status: F Test: CREATININE FOR GFR; Value: 0.91; Range: 0.70-1.30; Units: MG/DL; Status: F Test: GLOMERULAR FILTRATION RATE; Value: > 60.0; Range: >56; Status: F Test: SODIUM LEVEL; Value: 145; Range: 136-145; Units: MEQ/L; Status: F Test: POTASSIUM SERUM; Value: 4.0; Range: 3.5-5.1; Units: MEQ/L; Status: F Test: CHLORIDE LEVEL; Value: 109; Range: 98-107; Abnormal: Above high normal; Units: MEQ/L; Status: F Test: CARBON DIOXIDE LEVEL; Value: 29; Range: 21-32; Units: MEQ/L; Status: F Test: ANION GAP; Value: 7; Range: 8-16; Abnormal: Below low normal; Units: MEQ/L; Status: F Test: CALCIUM LEVEL; Value: 8.5; Range: 8.5-10.1; Units: MG/DL; Status: F Test Note: ; Units are mL/min/1.73 m2 Chronic Kidney Disease Staging per NKF: Stage I & II GFR >=60 Normal to Mildly Decreased Stage III GFR 30-59 Moderately Decreased Stage IV GFR 15-29 Severely Decreased Stage V GFR <15 Very Little GFR Left ESRD GFR <15 on [employer] SPECIALIST Lab Order: Complete Blood Count; SPEC'M 09/03/16 23:07 Test: WHITE BLOOD COUNT; Value: 7.5; Range: 4.0-10.0; Units: K/mm3; Status: F Test: RED BLOOD COUNT; Value: 5.15; Range: 4.30-6.10; Units: M/mm3; Status: F Test: HEMOGLOBIN; Value: 15.4; Range: 14.0-18.0; Units: g/dl; Status: F Test: HEMATOCRIT; Value: 43.5; Range: 42.0-52.0; Units: %; Status: F Test: MEAN CORPUSCULAR VOLUME; Value: 84.4; Range: 80.0-96.0; Units: fl; Status: F Test: MEAN CORPUSCULAR HEMOGLOBIN; Value: 29.9; Range: 27.0-33.0; Units: pg; Status: F Test: MEAN CORPUSCULAR HGB CONC; Value: 35.4; Range: 32.0-36.5; Units: g/dl; Status: F Test: RED CELL DISTRIBUTION WIDTH; Value: 13.8; Range: 11.5-14.5; Units: %; Status: F Test: PLATELET COUNT, AUTOMATED; Value: 212; Range: 150-450; Units: k/mm3; Status: F Lab Order: Drug Eval Toxicology ED Only; SPEC'M 09/03/16 23:07 Test: AMPHETAMINES LEVEL URINE; Value: NEGATIVE; Range: NEGATIVE; Status: F Test: BARBITURATES URINE; Value: NEGATIVE; Range: NEGATIVE; Status: F Test: BENZODIAZEPINES URINE; Value: NEGATIVE; Range: NEGATIVE; Status: F Test: CANNABINOIDS URINE; Value: NEGATIVE; Range: NEGATIVE; Status: F Test: COCAINE METABOLITE URINE; Value: NEGATIVE; Range: NEGATIVE; Status: F Test: METHADONE URINE; Value: NEGATIVE; Range: NEGATIVE; Status: F Test: OPIATES URINE; Value: NEGATIVE; Range: NEGATIVE; Status: F Test: TRICYCLIC ANTIDEPRESS URINE; Value: NEGATIVE; Range: NEGATIVE; Status: F Test Note: ; ALL PRESUMPTIVE POSITIVE FINDINGS ARE UNCONFIRMED NORMAL VALUES THRESHOLD IN NG/ML AMPHETAMINES 1000 METHAMPHETAMINES 1000 BARBITURATES 300 BENZODIAZEPINES 300 CANNABINOIDS (THC) 50 COCAINE METABOLITE 300 METHADONE 300 OPIATES 300 PHENCYCLIDINE 25 TRICYCLIC ANTIDEPRESSANTS 1000 RESULTS ARE FOR MEDICAL PURPOSES ONLY. ALL URINE SPECIMENS WILL BE SAVED FOR 3 DAYS. IF CONFIRMATION OF A PRESUMPTIVE POSTIVE SCREEN RESULT IS DESIRED, CALL CHEMISTRY ([phone]) AND REQUEST URINE TO BE SENT TO REFERENCE LAB. FOR A LIST OF CLOSELY RELATED COMPOUNDS PLEASE CALL THE LAB. Lab Order: Ethyl Alcohol (ethanol); SPEC'M 09/03/16 23:07 Test: ETHYL ALCOHOL (ETHANOL); Value: 0.118; Range: 0.000-0.010; Abnormal: Above high normal; Units: %; Status: F Lab Order: Liver Profile; SPEC'M 09/03/16 23:07 Test: AST/SGOT; Value: 79; Range: 15-37; Abnormal: Above high normal; Units: U/L; Status: F Test: ALT/SGPT; Value: 173; Range: 12-78; Abnormal: Above high normal; Units: U/L; Status: F Test: ALKALINE PHOSPHATASE; Value: 54; Range: 45-117; Units: U/L; Status: F Test: BILIRUBIN,TOTAL; Value: 0.3; Range: 0.2-1.0; Units: MG/DL; Status: F Test: BILIRUBIN,DIRECT; Value: < 0.1; Range: 0.0-0.2; Units: MG/DL; Status: F Test: TOTAL PROTEIN; Value: 7.4; Range: 6.4-8.2; Units: GM/DL; Status: F Test: ALBUMIN; Value: 3.9; Range: 3.2-5.2; Units: GM/DL; Status: F Test: ALBUMIN/GLOBULIN RATIO; Value: 1.11; Range: 1.00-1.93; Status: F Lab Order: Salicylate Level; SPEC'M 09/03/16 23:07 Test: SALICYLATE LEVEL; Value: 1.9; Range: 5.0-30.0; Abnormal: Below low normal; Units: MG/DL; Status: F Lab Order: Thyroid Stimulating Hormone; SPEC'M 09/03/16 23:07 Test: THYROID STIMULATING HORMONE; Value: 0.963; Range: 0.358-3.740; Units: uIU/ML; Status: F Outcome: 02:31 Decision to Hospitalize by Provider. cs11 02:46 Discharge Assessment: Patient awake, alert and oriented x 3. No cognitive and/or rw1 functional deficits noted. Patient verbalized understanding of disposition instructions. patient administered narcotics - no. The following High Risk Discharge criteria are identified: Admitted to Psych accompanied by tech, via wheelchair, with chart. Condition: stable. No special radiology studies were completed. Property removed, inventory done, secured in belongings bag- given to [facility] staff. 02:48 Patient left the ED. rw1 Signatures: Musa Matias RN RN cz Rasmussen, Tim tr Workman, Robert, LPN LPN rw1 Iesha Ford PSA PSA jfb David Aranda DO DO cs11 Viola Painter gr2 Tiffanie Hathaway Kathie klr Corrections: (The following items were deleted from the chart) 01:48 00:56 Status: The patient is not a guest service manager or dependent. ken rogers 01:48 00:56 Subjective: The patients chief complaint is Per PT's step daughter Desi Reeves ken [phone] PT called her to bring him to ED for admission. PT has adult children and none of them contacted him on any of the holidays. Today he called his daughter to confront her and she "said the most awful things to him". PT called Desi stating he had begun scratching his left wrist but then decided to come to hospital before he did anything further. . jfb Chart Complete MTDD
--- NOTE | 2016-09-06 03:50 | EDDOCDS ---
Physician Documentation [facility] Name: Luciano Holder Age: 55 yrs Sex: Male : 1960 Arrival Date: 09/03/2016 Time: 22:22 Bed OBSERVATION Private MD: Unknown, Family Dr Disposition: 09/04/16 02:31 Hospitalization ordered by Costa Barrientos for Inpatient Admission. Preliminary diagnosis are Major depressive disorder, recurrent, Alcohol abuse with intoxication. - Bed requested for Admit. - Status is Inpatient Admission. rw1 - Condition is Stable. - Problem is chronic. - Symptoms have improved. Historical: - Home Meds: 1. citalopram 40 mg Oral tab 1 tab once daily 2. Concerta Oral once daily 3. hydroxyzine HCl 25 mg Oral tab 1 tab 3 times per day 4. Suboxone 8-2 mg SL film 1.5 film once daily 1.5 film daily - PMHx: Anxiety; Depression; Hepatitis C; Hypertension; - PSHx: none; - Social history: Smoking status: Patient uses tobacco products, heavy tobacco smoker. No barriers to communication noted, The patient speaks fluent Djiboutian, Speaks appropriately for age. - Family history: Not pertinent. - : The pt / caregiver states he / she is not on anticoagulants. Home medication list is obtained from [employer] import data. - Exposure Risk Screening:: None identified. Vital Signs: 09/03 22:23 BP 146 / 86; Pulse 98; Resp 18 S; Temp 97.7(O); Pulse Ox 96% ; Weight 97.52 kg / 214.99 gr2 lbs (R); Height 5 ft. 7 in. (170.18 cm) (R); Pain 2/10; 09/04 02:35 BP 112 / 69; Pulse 71; Resp 18; Temp 97.9(TE); Pulse Ox 95% on R/A; tr 09/03 22:23 Body Mass Index 33.67 (97.52 kg, 170.18 cm) gr2 MDM: 09/03 22:41 Consult PFS/PSA/Reconditioning Associate ordered. cs11 22:41 Consult PFS/PSA/Reconditioning Associate: Patient's case requires discussion with on-call cs11 Psychiatrist ordered. 22:41 PSA/PFS to call Nursing Textile Worker, to enter patient data on [place] Safe Act if patient cs11 involuntarily admitted or transferred for SI or HI ordered. 22:41 Confirm accurate psychiatric medication list and times of last dosage ordered. cs11 22:41 Detain Pt Until Medically/PFS Cleared ordered. cs11 22:42 Acetaminophen Level Ordered. EDMS 22:42 Basic Metabolic Profile Ordered. EDMS 22:42 Complete Blood Count Ordered. EDMS 22:42 Drug Eval Toxicology ED Only Ordered. EDMS 22:42 Ethyl Alcohol (ethanol) Ordered. EDMS 22:42 Liver Profile Ordered. EDMS 22:42 Salicylate Level Ordered. EDMS 22:42 Thyroid Stimulating Hormone Ordered. EDMS 09/04 00:06 Financial registration complete. [facility] 00:17 [facility] Payment Agreement was scanned into [employer] and attached to record. [facility] 01:49 Consult PFS/PSA/Reconditioning Associate complete. [facility] 01:49 Consult PFS/PSA/Reconditioning Associate: Patient's case requires discussion with on-call b Psychiatrist complete. 01:49 PSA/PFS to call Nursing Textile Worker, to enter patient data on [facility] Safe Act if patient jfb involuntarily admitted or transferred for SI or HI complete. 02:02 Admit to [facility]: ordered. EDMS 02:03 REGULAR DIET ordered. EDMS 02:29 [facility] Legal paperwork was scanned into [employer] and attached to record. jfb 02:30 Acetaminophen Level Reviewed. cs11 02:30 Basic Metabolic Profile Reviewed. cs11 02:30 Ethyl Alcohol (ethanol) Reviewed. cs11 02:30 Liver Profile Reviewed. cs11 02:30 Salicylate Level Reviewed. cs11 02:30 Complete Blood Count Reviewed. cs11 02:30 Drug Eval Toxicology ED Only Reviewed. cs11 02:30 Thyroid Stimulating Hormone Reviewed. cs11 02:33 BED REQUEST+ADM ordered. EDLA 17:48 T-Sheet-- Draft Copy was scanned into [employer] and attached to record. klr Signatures: Dispatcher [employer] EDLA Musa Matias, MILDRED RN Shahram Coppola LPN LPN rw1 Iesha Ford PSA PSA David Baca, DO cs11 Tiffanie Hathaway Alia Duke The chart was reviewed and I authenticate all verbal orders and agree with the evaluation and treatment provided.Attachments: 00:17 [facility] [place] Agreement [facility] 17:48 T-Sheet-- Draft Copy klr Chart Complete MTDD
--- NOTE | 2016-09-06 03:50 | EDDOCDS ---
Physician Documentation [facility] Name: Luciano Holder Age: 55 yrs Sex: Male : 1960 Arrival Date: 09/03/2016 Time: 22:22 Bed OBSERVATION Private MD: Unknown, Family Dr Disposition: 09/04/16 02:31 Hospitalization ordered by Costa Barrientos for Inpatient Admission. Preliminary diagnosis are Major depressive disorder, recurrent, Alcohol abuse with intoxication. - Bed requested for Admit. - Status is Inpatient Admission. rw1 - Condition is Stable. - Problem is chronic. - Symptoms have improved. Historical: - Home Meds: 1. citalopram 40 mg Oral tab 1 tab once daily 2. Concerta Oral once daily 3. hydroxyzine HCl 25 mg Oral tab 1 tab 3 times per day 4. Suboxone 8-2 mg SL film 1.5 film once daily 1.5 film daily - PMHx: Anxiety; Depression; Hepatitis C; Hypertension; - PSHx: none; - Social history: Smoking status: Patient uses tobacco products, heavy tobacco smoker. No barriers to communication noted, The patient speaks fluent Indonesian, Speaks appropriately for age. - Family history: Not pertinent. - : The pt / caregiver states he / she is not on anticoagulants. Home medication list is obtained from [employer] import data. - Exposure Risk Screening:: None identified. Vital Signs: 09/03 22:23 BP 146 / 86; Pulse 98; Resp 18 S; Temp 97.7(O); Pulse Ox 96% ; Weight 97.52 kg / 214.99 gr2 lbs (R); Height 5 ft. 7 in. (170.18 cm) (R); Pain 2/10; 09/04 02:35 BP 112 / 69; Pulse 71; Resp 18; Temp 97.9(TE); Pulse Ox 95% on R/A; tr 09/03 22:23 Body Mass Index 33.67 (97.52 kg, 170.18 cm) gr2 MDM: 09/03 22:41 Consult PFS/PSA/Equipment Maintenance Supervisor ordered. cs11 22:41 Consult PFS/PSA/Equipment Maintenance Supervisor: Patient's case requires discussion with on-call cs11 Psychiatrist ordered. 22:41 PSA/PFS to call Nursing Umbrella Frame Maker, to enter patient data on [place] Safe Act if patient cs11 involuntarily admitted or transferred for SI or HI ordered. 22:41 Confirm accurate psychiatric medication list and times of last dosage ordered. cs11 22:41 Detain Pt Until Medically/PFS Cleared ordered. cs11 22:42 Acetaminophen Level Ordered. EDMS 22:42 Basic Metabolic Profile Ordered. EDMS 22:42 Complete Blood Count Ordered. EDMS 22:42 Drug Eval Toxicology ED Only Ordered. EDMS 22:42 Ethyl Alcohol (ethanol) Ordered. EDMS 22:42 Liver Profile Ordered. EDMS 22:42 Salicylate Level Ordered. EDMS 22:42 Thyroid Stimulating Hormone Ordered. EDMS 09/04 00:06 Financial registration complete. [facility] 00:17 [facility] Payment Agreement was scanned into [employer] and attached to record. [facility] 01:49 Consult PFS/PSA/Equipment Maintenance Supervisor complete. [facility] 01:49 Consult PFS/PSA/Equipment Maintenance Supervisor: Patient's case requires discussion with on-call b Psychiatrist complete. 01:49 PSA/PFS to call Nursing Umbrella Frame Maker, to enter patient data on [facility] Safe Act if patient jfb involuntarily admitted or transferred for SI or HI complete. 02:02 [facility] ordered. EDMS 02:03 REGULAR DIET ordered. EDMS 02:29 [facility] Legal paperwork was scanned into [employer] and attached to record. jfb 02:30 Acetaminophen Level Reviewed. cs11 02:30 Basic Metabolic Profile Reviewed. cs11 02:30 Ethyl Alcohol (ethanol) Reviewed. cs11 02:30 Liver Profile Reviewed. cs11 02:30 Salicylate Level Reviewed. cs11 02:30 Complete Blood Count Reviewed. cs11 02:30 Drug Eval Toxicology ED Only Reviewed. cs11 02:30 Thyroid Stimulating Hormone Reviewed. cs11 02:33 BED REQUEST+ADM ordered. EDAL 17:48 T-Sheet-- Draft Copy was scanned into [employer] and attached to record. klr Signatures: Dispatcher [employer] EDAL Musa Matias, MILDRED RN Shahram Coppola LPN LPN rw1 Iesha Ford PSA PSA David Baca, DO cs11 Tiffanie Hathaway Alia Duke The chart was reviewed and I authenticate all verbal orders and agree with the evaluation and treatment provided.Attachments: 00:17 [facility] [place] [facility] 17:48 T-Sheet-- Draft Copy klr Chart Complete MTDD
[2016-09-06 06:27] VITALS: BP 147/89
[2016-09-06] MEDS: CitaloPRAM (CeleXA) 20 MG TAB PO SCH (08:32)
[2016-09-06] MEDS: BUPRENORPHINE/NALOXONE 8-2MG SUBLINGUAL TABLET(SUBOXONE) SL SCH (08:32)
[2016-09-06] MEDS: METHYLPHENIDATE ER 18 MG TABLET (CONCERTA) PO SCH (08:33)
[2016-09-06] MEDS: NICOTINE 21MG/24HR 1 EA TRANSDERMAL TD SCH (08:36)
--- NOTE | 2016-09-06 08:36 | REP ---
Right upper quadrant sonography: History: Right upper quadrant pain. Comparison sonography February 23, 2016 showed some sludge and tiny echogenic foci in the gallbladder wall suggesting adenomyomatosis but no stones. Today's sonographic findings: Scanning through the right upper quadrant of the abdomen demonstrates a normal sized thin-walled gallbladder. Foci of increased echogenicity are again seen in the gallbladder but there is no evidence of comet-tail artifact or acoustic shadowing associated with this. No sludge or stone is seen today. The common bile duct is normal measuring 0.4 cm in greatest diameter. No focal hepatic lesion is seen. The pancreas is obscured by abdominal gas. There is no evidence of ascites or right renal abnormality. The right kidney measures 12.1 x 6.1 x 5.2 cm. Impression: Foci of increased sonographic reflectivity in the gallbladder wall, question mild adenomyomatosis. No sludge or stone seen. Otherwise normal right upper quadrant sonography. Signed by Ron Goyal MD 09/06/2016 01:17 P
[2016-09-06] MEDS ORDERED: INFLUENZA QUADRIVALENT PF VACCINE 0.5ML SYRINGE/VIAL (90686) IM ONE (09:00)
[2016-09-06 18:00] VITALS: BP 118/76
[2016-09-06] MEDS: traZODone 50 MG TAB PO PRN (21:05)
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
[2016-09-07 06:30] VITALS: BP 144/89
[2016-09-07] MEDS: BUPRENORPHINE/NALOXONE 8-2MG SUBLINGUAL TABLET(SUBOXONE) SL SCH (08:28)
[2016-09-07] MEDS: METHYLPHENIDATE ER 18 MG TABLET (CONCERTA) PO SCH (08:28)
[2016-09-07] MEDS: CitaloPRAM (CeleXA) 20 MG TAB PO SCH (08:28)
[2016-09-07] MEDS: NICOTINE 21MG/24HR 1 EA TRANSDERMAL TD SCH (08:30)
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
[2016-09-07 18:18] VITALS: BP 119/80
[2016-09-07] MEDS: traZODone 50 MG TAB PO PRN (21:47)
[2016-09-08 06:44] VITALS: BP 127/82
[2016-09-08] MEDS: BUPRENORPHINE/NALOXONE 8-2MG SUBLINGUAL TABLET(SUBOXONE) SL SCH (08:34)
[2016-09-08] MEDS: METHYLPHENIDATE ER 18 MG TABLET (CONCERTA) PO SCH (08:34)
[2016-09-08] MEDS: CitaloPRAM (CeleXA) 20 MG TAB PO SCH (08:34)
[2016-09-08] MEDS: NICOTINE 21MG/24HR 1 EA TRANSDERMAL TD SCH (08:34)
[2016-09-08] MEDS ORDERED: NICO21PAT TD (12:08)
[2016-09-08 18:00] VITALS: BP 124/81
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
[2016-09-08] MEDS: traZODone 50 MG TAB PO PRN (21:44)
[2016-09-09 06:55] VITALS: BP 142/90
[2016-09-09] MEDS: NICOTINE 21MG/24HR 1 EA TRANSDERMAL TD SCH (08:19)
[2016-09-09] MEDS: CitaloPRAM (CeleXA) 20 MG TAB PO SCH (08:20)
[2016-09-09] MEDS: BUPRENORPHINE/NALOXONE 8-2MG SUBLINGUAL TABLET(SUBOXONE) SL SCH (08:20)
[2016-09-09] MEDS ORDERED: TRAZ50TA4 PO (09:19)
[2016-09-09] MEDS ORDERED: ABIL5TAB5 PO (09:19)
[2016-09-09] MEDS ORDERED: VIST50CA PO (09:19)
[2016-09-09] MEDS ORDERED: CELE20TA PO (10:51)
[2016-09-09] MEDS ORDERED: HYDRO50TAB PO (10:51)
[2016-09-09] MEDS ORDERED: ARIP5TA PO (10:51)
[2016-09-09] MEDS ORDERED: TRAZO50TA PO (10:51)
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
== END 2016-09-09 13:00 | disposition home or self-care (01) | DRG 885 ==
LOC: M ED 22:22 → M PSY 09-04 02:57
PROVIDERS: ADMIT Psychiatry & Neurology Psychiatry; ATTEND Psychiatry & Neurology Psychiatry
DX: F33.9 Major depressive disorder, recurrent, unspecified (principal); F17.210 Nicotine dependence, cigarettes, uncomplicated; Z79.899 Other long term (current) drug therapy; B18.2 Chronic viral hepatitis C; I10 Essential (primary) hypertension

== ENCOUNTER → 2016-10-17 | Outpatient (CLI) | payer OTHER, MEDICAID ==
[~2016-10-17] MED LIST changes: +ABIL5TAB5 PO; +ARIP5TA PO; +CELE20TA PO; +CONC36TA4 PO; +HYDRO50TAB PO; +NICO21PAT TD; +TRAZO50TA PO; +VIST50CA PO
== END ==
LOC: M LAB 08:14
PROVIDERS: ATTEND Psychiatry & Neurology Psychiatry
DX: E55.9 Vitamin D deficiency, unspecified (principal)

== ENCOUNTER → 2016-10-25 | Outpatient (CLI) | payer OTHER, MEDICAID ==
[2016-10-25 09:03] LABS: MEAN CORPUSCULAR HEMOGLOBIN 29.5 pg (27.0-33.0); MEAN CORPUSCULAR HGB CONC 33.4 g/dl (32.0-36.5); MEAN CORPUSCULAR VOLUME 88.1 fl (80.0-96.0); WHITE BLOOD COUNT 6.4 K/mm3 (4.0-10.0)
[2016-10-25 09:04] LABS: ALBUMIN 3.9 GM/DL (3.2-5.2); ALBUMIN/GLOBULIN RATIO 1.15 (1.00-1.93); ALKALINE PHOSPHATASE 48 U/L (45-117); ALT/SGPT 99 U/L (12-78); ANION GAP 7 MEQ/L (8-16); AST/SGOT 39 U/L (15-37); BILIRUBIN,TOTAL 0.3 MG/DL (0.2-1.0); BLOOD UREA NITROGEN 14 MG/DL (7-18); CALCIUM LEVEL 8.8 MG/DL (8.5-10.1); CARBON DIOXIDE LEVEL 30 MEQ/L (21-32); CHLORIDE LEVEL 106 MEQ/L (98-107); CREATININE FOR GFR 0.88 MG/DL (0.70-1.30); GLOMERULAR FILTRATION RATE > 60.0 (>56); GLUCOSE, FASTING 91 MG/DL (70-105); POTASSIUM SERUM 4.1 MEQ/L (3.5-5.1); SODIUM LEVEL 143 MEQ/L (136-145); TOTAL PROTEIN 7.3 GM/DL (6.4-8.2)
[2016-10-25 10:14] LABS: INR 0.96
--- NOTE | 2016-10-25 10:44 | REP ---
HEPATIC SONOGRAPHY: HISTORY: Hepatitis C. Comparison study September 06, 2016. FINDINGS: Scanning through the right upper quadrant of the abdomen again demonstrates foci of gallbladder wall echogenicity consistent with mild gallbladder wall adenomyomatosis as before. There is evidence of fatty infiltration of the liver. No stone or polyp is seen in the gallbladder. No focal liver mass lesion is seen. Limited views of the pancreas show no abnormality. There is no evidence of ascites or right renal abnormality. The right kidney measures 11.2 x 7.0 x 5.5 cm. IMPRESSION: Findings compatible with mild adenomyomatosis of the gallbladder wall. Fatty infiltration of the liver. No focal mass lesion seen. Signed by Ron Goyal MD 10/25/2016 01:08 P
[2016-10-28 00:10] LABS: HEPATITIS C QUANTITATION 3102700 IU/mL (.)
== END ==
LOC: M RAD 08:19
PROVIDERS: ATTEND Internal Medicine Infectious Disease
DX: B18.2 Chronic viral hepatitis C (principal)

== ENCOUNTER → 2016-11-05 | Outpatient (CLI) | payer OTHER, MEDICAID ==
--- NOTE | 2016-11-05 10:47 | ECGEPIP ---
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 Electronically Signed On 11-05-2016 10:47:25 EDT by Flaco Huntley
== END ==
LOC: M EKG 08:39
PROVIDERS: ATTEND Anesthesiology
DX: Z01.818 Encounter for other preprocedural examination (principal); K82.9 Disease of gallbladder, unspecified

== ENCOUNTER → 2016-11-11 | Day surgery (SDC) | payer OTHER, MEDICAID ==
[~2016-11-11] VITALS: Ht 170.2 cm; Wt 98.9 kg
[~2016-11-11] MED LIST changes: +AMPICILLIN SOD/SULBACTAM SOD 3 GM in D5W MINI-BAG PLUS 100 ML IV ONE; +BUPIVACAINE HCL 0.25% 30 ML VIAL As Ordered ONE; +CONRAY-60 60% 50ML VIAL (Q9961) As Ordered ONE; +GLYCOPYRROLATE INJ 0.2 MG/ML 2 ML VIAL As Ordered ONE; +HYDROmorphone HCL 2 MG/ML 1ML VIAL (J1170) As Ordered ONE; +KETOROLAC 30 MG/ML VIAL (J1885) IV PRN; +KETOROLAC 60 MG/2 ML VIAL (J1885) As Ordered ONE; +LIDOCAINE 1% SDV INJ 30 ML VIAL As Ordered ONE; +LIDOCAINE 2% INJ 100 MG/5 ML SDV (FOR ANES.) As Ordered ONE; +LR 1,000 ML IV SCH; +MIDAZOLAM INJ 2 MG/2 ML VIAL (J2250) As Ordered ONE; +NEOSTIGMINE 1MG/ML 5 ML SYRINGE (J2710) As Ordered ONE; +NORCO, ANEXSIA 5/325MG TABLET (HYDROcodone/ACETAMINOPHEN) PO PRN; +ONDANSETRON 4MG/2ML VIAL (J2405) As Ordered ONE; +ONDANSETRON 4MG/2ML VIAL (J2405) IV PRN; +PHENYLephrine HCL 500 MCG/5 ML (100MCG/ML) SYRINGE (J2370) As Ordered ONE; +PROPOFOL 200 MG/20 ML VIAL As Ordered ONE; +ROCURONIUM BROMIDE 50 MG/5 ML VIAL As Ordered ONE; +SEVOFLURANE INHAL SOLN 250 ML BTL As Ordered ONE; +dexameTHASONE 4 MG/ML 1ML VIAL (J1100) As Ordered ONE; +ePHEDrine SULFATE 25 MG/5 ML(5MG/ML) SYRINGE As Ordered ONE; +fentaNYL 100 MCG/2 ML INJECTION (J3010) IV PRN; +fentaNYL 250 MCG/5 ML INJECTION (J3010) As Ordered ONE
[2016-11-11 14:15] VITALS: BP 99/52
== END | disposition home or self-care (01) ==
LOC: M SDC 07:45
PROVIDERS: ATTEND Surgery
DX: K81.0 Acute cholecystitis (principal); R10.11 Right upper quadrant pain; I10 Essential (primary) hypertension; F32.9 Major depressive disorder, single episode, unspecified; B18.2 Chronic viral hepatitis C; F10.20 Alcohol dependence, uncomplicated; F17.210 Nicotine dependence, cigarettes, uncomplicated
CPT/HCPCS: 47562; 88304; J1100; J1170; J1885; J2250; J2370; J2405; J2710; J3010

== ENCOUNTER → 2017-07-19 | Outpatient (CLI) | payer OTHER, MEDICAID ==
[~2017-07-19] MED LIST changes: +ABIL1TAB11 PO; +ABIL1TAB13 PO; -ABIL2TAB2 PO; -ABIL5TAB5 PO; -AMPICILLIN SOD/SULBACTAM SOD 3 GM in D5W MINI-BAG PLUS 100 ML IV ONE; -BUPIVACAINE HCL 0.25% 30 ML VIAL As Ordered ONE; -CONRAY-60 60% 50ML VIAL (Q9961) As Ordered ONE; -GLYCOPYRROLATE INJ 0.2 MG/ML 2 ML VIAL As Ordered ONE; +HYDR-3363 PO; -HYDR-4274 PO; -HYDR25T PO; +HYDR50TA70 PO; -HYDROmorphone HCL 2 MG/ML 1ML VIAL (J1170) As Ordered ONE; -KETOROLAC 30 MG/ML VIAL (J1885) IV PRN; -KETOROLAC 60 MG/2 ML VIAL (J1885) As Ordered ONE; -LIDOCAINE 1% SDV INJ 30 ML VIAL As Ordered ONE; -LIDOCAINE 2% INJ 100 MG/5 ML SDV (FOR ANES.) As Ordered ONE; -LR 1,000 ML IV SCH; -MIDAZOLAM INJ 2 MG/2 ML VIAL (J2250) As Ordered ONE; -NEOSTIGMINE 1MG/ML 5 ML SYRINGE (J2710) As Ordered ONE; -NORCO, ANEXSIA 5/325MG TABLET (HYDROcodone/ACETAMINOPHEN) PO PRN; -ONDANSETRON 4MG/2ML VIAL (J2405) As Ordered ONE; -ONDANSETRON 4MG/2ML VIAL (J2405) IV PRN; -PHENYLephrine HCL 500 MCG/5 ML (100MCG/ML) SYRINGE (J2370) As Ordered ONE; -PROPOFOL 200 MG/20 ML VIAL As Ordered ONE; -ROCURONIUM BROMIDE 50 MG/5 ML VIAL As Ordered ONE; -SEVOFLURANE INHAL SOLN 250 ML BTL As Ordered ONE; +TRAZ50TA11 PO; -TRAZ50TA4 PO; -dexameTHASONE 4 MG/ML 1ML VIAL (J1100) As Ordered ONE; -ePHEDrine SULFATE 25 MG/5 ML(5MG/ML) SYRINGE As Ordered ONE; -fentaNYL 100 MCG/2 ML INJECTION (J3010) IV PRN; -fentaNYL 250 MCG/5 ML INJECTION (J3010) As Ordered ONE
--- NOTE | 2017-07-20 07:22 | REP ---
NONCONTRAST CHEST CT USING LOW DOSE LUNG SCREENING TECHNIQUE: CLINICAL: Lung screening. History of tobacco abuse. COMPARISON: None. TECHNIQUE: Axial low dose noncontrast images from the thoracic inlet to the upper abdomen using lung screening technique obtained and evaluated in lung windows only. FINDINGS: The bilateral lung suarez are well aerated and essentially symmetric. A 6 mm non-solid ground glass nodule is identified in the basilar right upper lobe (image 47). No further significant nodule or mass lesion is appreciated. No consolidation. No obvious effusion or pneumothorax. Tracheobronchial tree is patent. The mediastinum is grossly unremarkable. The surrounding musculoskeletal structures are intact and without focal osseous abnormality. IMPRESSION: 6 mm ground glass nodule in the basilar right upper lobe. Lung-RADS category 2 lesion. Management includes 12 month re-evaluation. Signed by John Dominguez MD 07/21/2017 08:59 A
== END ==
LOC: M RAD 10:18
PROVIDERS: ATTEND Nurse Practitioner Adult Health
DX: F17.200 Nicotine dependence, unspecified, uncomplicated (principal)

== ENCOUNTER → 2017-07-20 | Outpatient (CLI) | payer OTHER, MEDICAID ==
[2017-07-20 14:44] LABS: ALBUMIN 4.2 GM/DL (3.2-5.2); ALKALINE PHOSPHATASE 51 U/L (45-117); ALT/SGPT 72 U/L (12-78); ANION GAP 8 MEQ/L (8-16); AST/SGOT 39 U/L (7-37); BILIRUBIN,TOTAL 1.1 MG/DL (0.2-1.0); BLOOD UREA NITROGEN 16 MG/DL (7-18); CALCIUM LEVEL 9.1 MG/DL (8.5-10.1); CARBON DIOXIDE LEVEL 27 MEQ/L (21-32); CHLORIDE LEVEL 102 MEQ/L (98-107); CHOLESTEROL LEVEL 206 MG/DL (<200); GLOMERULAR FILTRATION RATE > 60.0 (>56); GLUCOSE, FASTING 75 MG/DL (70-105); POTASSIUM SERUM 3.8 MEQ/L (3.5-5.1); SODIUM LEVEL 137 MEQ/L (136-145); TOTAL PROTEIN 7.7 GM/DL (6.4-8.2); TRIGLYCERIDES LEVEL 60 MG/DL (<150)
[2017-07-20 15:10] LABS: MEAN CORPUSCULAR HEMOGLOBIN 27.9 pg (27.0-33.0); MEAN CORPUSCULAR HGB CONC 34.2 g/dl (32.0-36.5); MEAN CORPUSCULAR VOLUME 81.6 fl (80.0-96.0); PLATELET COUNT, AUTOMATED 229 10^3/uL (150-450); RED CELL DISTRIBUTION WIDTH 13.2 % (11.5-14.5); WHITE BLOOD COUNT 8.4 10^3/uL (4.0-10.0)
[2017-07-25 10:14] LABS: HEPATITIS C QUANTITATION 4427640 IU/mL (.)
== END ==
LOC: M LAB 13:14
PROVIDERS: ATTEND Nurse Practitioner Adult Health
DX: B18.2 Chronic viral hepatitis C (principal); R73.9 Hyperglycemia, unspecified; Z00.01 Encounter for general adult medical examination with abnormal findings; Z00.00 Encounter for general adult medical examination without abnormal findings; E55.9 Vitamin D deficiency, unspecified

== ENCOUNTER 2019-02-05 19:18 | Emergency (ER) | payer OTHER, MEDICAID ==
[~2019-02-05] VITALS: Ht 170.2 cm; Wt 97.7 kg
[~2019-02-05 19:18] MED LIST changes: -/ESCI20TA; +ARIP1TAB6 PO; -ARIP5TA PO; +LEXA1TAB2; -METH36TA PO; +METH36TA5 PO; +TRAZ-252 PO; +TRAZ1TAB10 PO; -TRAZ50TA11 PO; -TRAZO50TA PO
[2019-02-05 19:48] LABS: BASO # 0.1 10^3/uL (0.0-0.2); EOS # 0.3 10^3/uL (0.0-0.50); EOS % 3.6 % (0.0-3.0); HEMATOCRIT 46.2 % (42.0-52.0); HEMOGLOBIN 14.8 g/dl (13.5-17.5); LYMPH # 4.4 10^3/uL (1.5-4.5); LYMPH % 53.4 % (24.0-44.0); MEAN CORPUSCULAR HEMOGLOBIN 25.5 pg (27.0-33.0); MEAN CORPUSCULAR VOLUME 79.7 fl (80.0-96.0); MONO # 0.6 10^3/uL (0.0-0.8); MONO % 7.3 % (0.0-5.0); NEUTROPHILS # 2.8 10^3/uL (1.8-7.7); NEUTROPHILS % 34.5 % (36.0-66.0); PLATELET COUNT, AUTOMATED 213 10^3/uL (150-450); WHITE BLOOD COUNT 8.2 10^3/uL (4.0-10.0)
[2019-02-05 20:02] LABS: INR 0.96; PARTIAL THROMBOPLASTIN TIME 29.3 SECONDS (25.0-38.4); PROTHROMBIN TIME 12.5 SECONDS (11.8-14.0)
[2019-02-05 20:17] LABS: ALBUMIN 3.9 GM/DL (3.2-5.2); ALT/SGPT 49 U/L (12-78); BILIRUBIN,DIRECT 0.1 MG/DL (0.0-0.2); BILIRUBIN,TOTAL 0.3 MG/DL (0.2-1.0); BLOOD UREA NITROGEN 11 MG/DL (7-18); CALCIUM LEVEL 8.6 MG/DL (8.5-10.1); CARBON DIOXIDE LEVEL 30 MEQ/L (21-32); CHLORIDE LEVEL 101 MEQ/L (98-107); CK-MB VALUE MASS < 1.0 NG/ML (<3.6); CPK CREATINE PHOSPHOKINASE 105 U/L (39-308); CREATININE FOR GFR 1.05 MG/DL (0.70-1.30); GLOMERULAR FILTRATION RATE > 60.0 (>56); GLUCOSE, FASTING 108 MG/DL (70-100); LIPASE 59 U/L (73-393); MB/CK RELATIVE INDEX 0.95 (< OR =4); POTASSIUM SERUM 4.3 MEQ/L (3.5-5.1); SODIUM LEVEL 137 MEQ/L (136-145); TOTAL PROTEIN 7.8 GM/DL (6.4-8.2); TROPONIN I < 0.02 NG/ML (< 0.10)
--- NOTE | 2019-02-05 20:29 | REP ---
Clinical: Acute chest pain . Comparison: 09/28/2011 . Technique: PA and lateral. Findings: The mediastinum and cardiac silhouette are normal. The lung suarez are clear and without acute consolidation, effusion, or pneumothorax. The skeletal structures are intact and normal. Impression: 1. No acute cardiopulmonary process. Electronically Signed by John Dominguez MD 02/05/2019 08:21 P
[2019-02-05] MEDS ORDERED: dexameTHASONE 20 MG/5 ML VIAL (J1100) IV ONE (22:30)
[2019-02-05] MEDS ORDERED: ALBUTEROL SULFATE 2.5 MG/0.5 ML INH NEB SOLN INH ONE (22:30)
[2019-02-05] MEDS ORDERED: KETOROLAC 30 MG/ML VIAL (J1885) IV ONE (22:30)
[2019-02-05] MEDS ORDERED: IPRATROPIUM 0.5MG/ALBUTEROL 2.5MG INH SOL UD 3ML (DUONEB)(J7620) NEB ONE (22:30)
[2019-02-05] MEDS ORDERED: ISOVUE-370 76% 100ML VIAL (Q9967) As Ordered ONE (23:05)
[2019-02-05] MEDS ORDERED: MORPHINE 2 MG/ML 1ML SYRINGE (J2270) IV ONE (23:30)
[2019-02-05] MEDS ORDERED: GI COCKTAIL 50ML BTL(HYOSCYAMINE/MAALOX/LIDOCAINE VISCOUS)(1:3:1) PO ONE (23:45)
--- NOTE | 2019-02-05 23:52 | REPVR ---
EXAM: CT Angiography Chest With Contrast EXAM DATE/TIME: 02/05/2019 10:48 PM CLINICAL HISTORY: 58 years old, male; Left-sided chest pain; Additional info: Chest pain, left TECHNIQUE: Imaging protocol: Axial computed tomographic angiography images of the chest with intravenous contrast using CT angiography protocol. Coronal and sagittal reformatted images were created and reviewed. 3D rendering: MIP reconstructed images were created and reviewed. Radiation optimization: All CT scans at this facility use at least one of these dose optimization techniques: automated exposure control; mA and/or kV adjustment per patient size (includes targeted exams where dose is matched to clinical indication); or iterative reconstruction. Contrast material: ISO; Contrast volume: 75 ml; Contrast route: AC COMPARISON: CR Chest, 2 view PA, Lat 02/05/2019 7:57 PM FINDINGS: Peripheral pulmonary artery evaluation limited by cardiac and respiratory motion artifact. Central pulmonary arteries show no intraluminal defect suggestive of clot. No thoracic aortic aneurysm or dissection. No enlarged mediastinal lymph nodes. Miniscule dependent pleural effusions. No pneumothorax. Multi-chamber cardiac dilatation is noted. No evidence of acute pulmonary edema. Lung parenchyma is unremarkable except for dependent atelectasis. No central endobronchial lesion. Gallbladder is surgically absent. IMPRESSION: No evidence of acute, central pulmonary embolus. Peripheral vessels cannot be evaluated because of motion artifact Miniscule dependent bilateral pleural effusions without evidence of pneumonia or pulmonary edema No other acute or concerning focal intrathoracic abnormality. Electronically signed by: Javier Ramirez On 02/05/2019 23:51:56 PM
[2019-02-06 00:33] LABS: CK-MB VALUE MASS < 1.0 NG/ML (<3.6); CPK CREATINE PHOSPHOKINASE 68 U/L (39-308); MB/CK RELATIVE INDEX 1.47 (< OR =4); TROPONIN I < 0.02 NG/ML (< 0.10)
[2019-02-06] MEDS ORDERED: KETO10TAB PO (01:06)
[2019-02-06] MEDS ORDERED: ZANT150T40 PO (01:06)
[2019-02-06 01:30] VITALS: BP 139/82
--- NOTE | 2019-02-06 21:29 | ECGEPIP ---
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
--- NOTE | 2019-02-06 21:35 | ECGEPIP ---
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
--- NOTE | 2019-02-11 15:22 | ED PDOC ---
Post-Departure Follow-Up kristina ling faxed formal report of cta chest forfu Ousmane Ragsdale MD Feb 11, 2019 15:22
== END 2019-02-06 01:40 | disposition home or self-care (01) ==
LOC: M ED 19:18
DX: K21.9 Gastro-esophageal reflux disease without esophagitis (principal); R09.1 Pleurisy; I10 Essential (primary) hypertension; E78.5 Hyperlipidemia, unspecified; Z79.899 Other long term (current) drug therapy; Z79.891 Long term (current) use of opiate analgesic; F17.210 Nicotine dependence, cigarettes, uncomplicated
CPT/HCPCS: 71046; 71275; 80048; 80076; 82550; 82553; 83690; 84484; 85025; 85610; 85730; 86140; 93005; 93041; 94640; 94760; 96374; 96375; 99285; J1100; J1885; J2270; Q9967

== ENCOUNTER → 2019-08-01 | Outpatient (REF) | payer OTHER, MEDICAID ==
[~2019-08-01] MED LIST changes: +HYDR1TAB33 PO; -HYDRO50TAB PO; +KETO10TAB PO; +ZANT150T40 PO
[2019-08-01 19:06] LABS: APPEARANCE, URINE CLEAR (CLEAR); BACTERIA, URINE AUTO NEGATIVE (NEGATIVE); BILIRUBIN, URINE AUTO NEGATIVE (NEGATIVE); BLOOD, URINE BLOOD NEGATIVE (NEGATIVE); COLOR, URINE YELLOW (YELLOW); GLUCOSE, URINE (UA) AUTO NEGATIVE (NEGATIVE); KETONE, URINE AUTO NEGATIVE (NEGATIVE); LEUKOCYTE ESTERASE, URINE AUTO NEGATIVE (NEGATIVE); MUCUS, URINE SMALL (NEGATIVE); NITRITE, URINE AUTO NEGATIVE (NEGATIVE); PROTEIN, URINE AUTO NEGATIVE (NEGATIVE); RBC, URINE AUTO 1 /HPF (0-3); SPECIFIC GRAVITY URINE AUTO 1.019 (1.002-1.035); SQUAMOUS EPITHELIAL CELL UR AU 0 /HPF (0-6); WBC, URINE AUTO 0 /HPF (0-3)
== END ==
LOC: M LAB REF 18:40
PROVIDERS: ATTEND Nurse Practitioner Family
DX: E66.9 Obesity, unspecified (principal); F11.21 Opioid dependence, in remission; F17.200 Nicotine dependence, unspecified, uncomplicated; R03.0 Elevated blood-pressure reading, without diagnosis of hypertension

== ENCOUNTER → 2019-08-01 | Outpatient (REF) | payer OTHER, MEDICAID ==
[2019-08-01 19:08] LABS: BASO # 0.1 10^3/uL (0.0-0.2); BASO % 0.6 % (0.0-1.0); EOS # 0.1 10^3/uL (0.0-0.5); EOS % 0.4 % (0.0-3.0); HEMATOCRIT 44.3 % (42.0-52.0); HEMOGLOBIN 14.6 g/dl (13.5-17.5); LYMPH # 2.7 10^3/uL (1.5-5.0); LYMPH % 23.6 % (24.0-44.0); MEAN CORPUSCULAR HEMOGLOBIN 27.1 pg (27.0-33.0); MEAN CORPUSCULAR VOLUME 82.2 fl (80.0-96.0); MONO # 0.8 10^3/uL (0.0-0.8); MONO % 6.6 % (0.0-5.0); NEUTROPHILS # 7.9 10^3/uL (1.5-8.5); NEUTROPHILS % 68.5 % (36.0-66.0); PLATELET COUNT, AUTOMATED 188 10^3/uL (150-450); RED BLOOD COUNT 5.39 10^6/uL (4.30-6.10); WHITE BLOOD COUNT 11.5 10^3/uL (4.0-10.0)
[2019-08-01 19:18] LABS: ALBUMIN 4.1 GM/DL (3.2-5.2); ALT/SGPT 50 U/L (12-78); BILIRUBIN,TOTAL 0.4 MG/DL (0.2-1.0); BLOOD UREA NITROGEN 12 MG/DL (7-18); CARBON DIOXIDE LEVEL 31 MEQ/L (21-32); CHLORIDE LEVEL 105 MEQ/L (98-107); CHOLESTEROL LEVEL 163 MG/DL (<200); CHOLESTEROL RISK RATIO 3.018 (<5); CREATININE FOR GFR 0.82 MG/DL (0.70-1.30); FREE T4 1.01 NG/DL (0.76-1.46); GLOMERULAR FILTRATION RATE > 60.0 (>56); GLUCOSE, FASTING 83 MG/DL (70-100); HDL CHOLESTEROL 54 MG/DL (>40); LDL CHOLESTEROL 95 MG/DL (<100); NON-HDL-C 109 MG/DL; POTASSIUM SERUM 4.3 MEQ/L (3.5-5.1); SODIUM LEVEL 140 MEQ/L (136-145); TOTAL PROTEIN 7.6 GM/DL (6.4-8.2); TRIGLYCERIDES LEVEL 72 MG/DL (<150)
[2019-08-01 19:21] LABS: TOTAL 25(OH) VITAMIN D 10.7 NG/ML (30.0-100.0)
[2019-08-01 19:24] LABS: HEMOGLOBIN A1c 5.6 %
== END ==
LOC: M LAB REF 18:44
PROVIDERS: ATTEND Nurse Practitioner Family
DX: E66.9 Obesity, unspecified (principal); F11.21 Opioid dependence, in remission; F17.200 Nicotine dependence, unspecified, uncomplicated; R03.0 Elevated blood-pressure reading, without diagnosis of hypertension

== ENCOUNTER → 2020-08-28 | Outpatient (REF) | payer OTHER, MEDICAID ==
[2020-08-28 18:31] LABS: ALBUMIN 3.9 GM/DL (3.2-5.2); ALT/SGPT 50 U/L (12-78); BILIRUBIN,TOTAL 0.3 MG/DL (0.2-1.0); BLOOD UREA NITROGEN 13 MG/DL (7-18); CALCIUM LEVEL 8.7 MG/DL (8.5-10.1); CARBON DIOXIDE LEVEL 31 MEQ/L (21-32); CHLORIDE LEVEL 103 MEQ/L (98-107); CHOLESTEROL LEVEL 169 MG/DL (<200); CHOLESTEROL RISK RATIO 4.023 (<5); CREATININE FOR GFR 0.92 MG/DL (0.70-1.30); GLOMERULAR FILTRATION RATE > 60.0 (>56); GLUCOSE, FASTING 94 MG/DL (70-100); HDL CHOLESTEROL 42 MG/DL (>40); LDL CHOLESTEROL 84 MG/DL (<100); NON-HDL-C 127 MG/DL; POTASSIUM SERUM 4.2 MEQ/L (3.5-5.1); SODIUM LEVEL 139 MEQ/L (136-145); THYROID STIMULATING HORMONE 0.995 uIU/ML (0.358-3.740); TOTAL PROTEIN 7.2 GM/DL (6.4-8.2); TRIGLYCERIDES LEVEL 213 MG/DL (<150)
[2020-08-28 18:32] LABS: TOTAL 25(OH) VITAMIN D 10.4 NG/ML (30.0-100.0)
== END ==
LOC: M LAB REF 17:17
PROVIDERS: ATTEND Family Medicine Addiction Medicine
DX: E55.9 Vitamin D deficiency, unspecified (principal); R03.0 Elevated blood-pressure reading, without diagnosis of hypertension